=== PATIENT | male | born 1975 | race Caucasian/White ===

== ENCOUNTER 2018-05-29 19:56 | Emergency (ER) | payer OTHER ==
[2018-05-29 20:04] VITALS: BP 114/90; PULSE 86; TEMP 98.1; BMI 29.5
--- NOTE | 2018-05-29 20:21 | PDOC ---
Rapid Medical Evaluation Time Seen by Provider: 05/29/18 20:00 Medical Evaluation: 05/29/18 20:01 I have performed a brief in-person evaluation of this patient. The patient presents with a chief complaint of: R hand lac 2 weeks ago in [facility] and s/p suture repair 4 days ago, here because wound "is open" per pt. No pain, discharge, f/c Pertinent physical exam findings:wound dehiscence to R palm, no e/o infxn I have ordered the following:nothing The patient will proceed to the ED for further evaluation. Discharge Disposition - Diagnosis Visit for wound check - Referrals Referrals: Brandan Ma MD [Non Staff, Medical] - Andres Dela Cruz MD [Staff Physician] - - Patient Instructions Additional Instructions: Keep the area covered while working. Other than that wash it with soap and water 5-6 times a day to keep it clean do not apply any ointments. Follow-up with hand surgery in 1-2 days for further evaluation and treatment options. Return to the ER should her symptoms worsen. Or if there is any drainage or redness or swelling to the area. - Post Discharge Activity
--- NOTE | 2018-05-29 20:29 | PDOC ---
History of Present Illness - General Chief Complaint: Laceration Stated Complaint: HAND INJURY Time Seen by Provider: 05/29/18 20:00 - History of Present Illness Initial Comments: 3-year-old male without comorbidities presents for evaluation of a laceration on his left hand. The laceration occurred 2 weeks ago the sutures were and for 10 days when the wound was closed primarily. He comes in today because of wound has reopened on him. 05/29/18 20:27 Past History - Past Medical History Allergies/Adverse Reactions: Allergies Allergy/AdvReac Type Severity Reaction Status Date / Time No Known Allergies Allergy Verified 05/29/18 20:03 COPD: No - Suicide/Smoking/Psychosocial Hx Smoking History: Never smoked Review of Systems - Review of Systems All Other Systems: Reviewed and Negative *Physical Exam - Vital Signs Last Vital Signs Temp Pulse Resp BP Pulse Ox 98.1 F 86 18 114/90 98 05/29/18 20:00 05/29/18 20:00 05/29/18 20:00 05/29/18 20:00 05/29/18 20:00 - Physical Exam Comments: 10 skin color and temperature are normal there is no induration fluctuance or sensitivity. There is a J-shaped laceration on the hyperthenar eminence of the left hand. There are no gross sensorimotor deficits flexion of all fingers are intact 05/29/18 20:27 Medical Decision Making - Medical Decision Making I advised the patient to keep the area clean with soap and water and follow-up with hand surgery. 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 05/29/18 20:28 *DC/Admit/Observation/Transfer Diagnosis at time of Disposition: Visit for wound check - Discharge Dispostion Disposition: HOME Condition at time of disposition: Stable Decision to Admit order: No - Referrals Referrals: Brandan Ma MD [Primary Care Provider] - Andres Dela Cruz MD [Staff Physician] - - Patient Instructions Additional Instructions: Keep the area covered while working. Other than that wash it with soap and water 5-6 times a day to keep it clean do not apply any ointments. Follow-up with hand surgery in 1-2 days for further evaluation and treatment options. Return to the ER should her symptoms worsen. Or if there is any drainage or redness or swelling to the area. - Post Discharge Activity
== END 2018-05-29 20:29 | disposition home or self-care (01) ==
LOC: JERFT 19:56
DX: Z48.00 Encounter for change or removal of nonsurgical wound dressing (principal)
CPT/HCPCS: 99281-25